=== PATIENT | female | born 1990 | race Caucasian/White ===

== ENCOUNTER 2019-03-06 00:40 | Emergency (ER) | payer MEDICAID ==
[~2019-03-06] VITALS: Ht 162.6 cm; Wt 66.0 kg
[2019-03-06] MEDS ORDERED: HYDROCODONE/ACETAMINOPHEN 5/325MG TABLET PO ONE (01:15)
[2019-03-06] MEDS ORDERED: ONDANSETRON 4MG ODT PO ONE (02:00)
[2019-03-06 02:36] VITALS: BP 122/81
== END 2019-03-06 02:39 | disposition home or self-care (01) ==
LOC: ER 00:40
DX: R07.9 Chest pain, unspecified (principal); M54.9 Dorsalgia, unspecified; V43.52XA Car driver injured in collision with other type car in traffic accident, initial encounter; Y93.89 Activity, other specified; Y92.410 Unspecified street and highway as the place of occurrence of the external cause; Z88.2 Allergy status to sulfonamides; Z88.8 Allergy status to other drugs, medicaments and biological substances; Z95.4 Presence of other heart-valve replacement
CPT/HCPCS: 71045; 72070; 99283; Q0162